=== PATIENT | male | born 1970 | race Caucasian/White ===

== ENCOUNTER 2020-03-24 10:49 | Emergency (ER) | payer OTHER ==
[2020-03-24] MEDS ORDERED: Acetaminophen 500 MG TAB ONE ×2 (10:52→11:06)
--- NOTE | 2020-03-24 11:25 | RAD ---
XR Chest 1 View Portable HISTORY: Fever COMPARISON: None FINDINGS: The heart size is normal. The lungs are well expanded without focal areas of consolidation, pneumothorax or pleural effusions. IMPRESSION: No radiographic evidence of acute cardiopulmonary process.
[2020-03-25 15:02] LABS: SARS-CoV-2 MS2 Positive; SARS-CoV-2 N Gene Negative; SARS-CoV-2 S Gene Negative; SARS-CoV-2 orf1ab Negative
== END 2020-03-24 11:43 | disposition home or self-care (01) ==
LOC: ERS 10:49
DX: R05 Cough (principal); M79.10 Myalgia, unspecified site; F17.200 Nicotine dependence, unspecified, uncomplicated; Z20.828 Contact with and (suspected) exposure to other viral communicable diseases
CPT/HCPCS: 71045; 87635; U0003